=== PATIENT | male | born 1970 | race Two or more races ===

== ENCOUNTER 2025-02-23 09:26 | Day surgery (SDC) | payer MEDICAID ==
[2025-02-22 13:14] LABS: Hematocrit 49.4 % (41.0-53.0); Hemoglobin 16.8 g/dL (13.5-17.5); Mean Corpuscular Hemoglobin 32.3 pg (28.0-32.0); Mean Corpuscular Volume 95.0 fL (80.0-100.0); Nucleated Red Blood Cells % 0.0 %
[2025-02-22 13:24] LABS: Urine Protein, UAD 1+ (Negative)
[2025-02-22 13:26] LABS: INR 1.03 (0.9-1.15); Partial Thromboplastin Time 28.8 SEC (24.5-34.5); Prothrombin Time 10.9 sec (9.3-11.8)
[2025-02-22 15:10] LABS: Alanine Aminotransferase 25 U/L (7-40); Albumin 4.3 g/dL (3.2-4.8); Anion Gap 7 (5-15); BUN/Creatinine Ratio 18.3 (10.0-20.0); Bilirubin, Total 0.6 mg/dL (0.2-1.0); Blood Urea Nitrogen 19 mg/dL (9-23); Calcium 9.5 mg/dL (8.7-10.4); Carbon Dioxide 28 mmol/L (20-31); Chloride 106 mmol/L (98-107); Glucose 84 mg/dL (74-106); Potassium 4.1 mmol/L (3.5-5.1); Sodium 141 mmol/L (136-145); Total Protein 7.5 g/dL (5.7-8.2)
[2025-02-22 15:20] LABS: Alkaline Phosphatase 127 U/L (46-116)
[~2025-02-23] VITALS: Ht 177.8 cm; Wt 113.4 kg
[2025-02-23] MEDS: CIPROFLOXACIN 400MG/200ML 200 ML IV ONE (13:50)
[2025-02-23] MEDS ORDERED: MEPERIDINE HCL (25 MG/ML) 1ML VIAL ONE (13:52)
[2025-02-23] MEDS ORDERED: MIDAZOLAM HCL 2MG/2ML 2ml VIAL (1mg/ml) ONE (13:52)
[2025-02-23] MEDS ORDERED: fentaNYL CITRATE 100 MCG/2 ML VL ONE (13:52)
[2025-02-23] MEDS ORDERED: SUCCINYLCHOLINE CHLORIDE 20 MG/ML 10ML VIAL IV ONE (13:53)
[2025-02-23] MEDS ORDERED: hydrALAZINE HCL 20 MG/ML VL IV PRN (14:15)
[2025-02-23] MEDS ORDERED: MIDAZOLAM HCL 2MG/2ML 2ml VIAL (1mg/ml) IV PRN (14:15)
[2025-02-23] MEDS ORDERED: KETOROLAC TROMETH 30 MG/ML 1ML VIAL IV ONE (14:15)
[2025-02-23] MEDS ORDERED: PROPOFOL 10 MG/ML 20 ML IV ONE (14:26)
[2025-02-23] MEDS ORDERED: ONDANSETRON HCL 4 MG/2 ML VIAL ONE (14:27)
[2025-02-23] MEDS: IOHEXOL 300 MG/ML 100ML BOTTLE IJ ONE (14:27)
[2025-02-23 15:15] VITALS: PULSE 64; RESP 12; O2SAT 95
--- NOTE | 2025-02-23 15:23 | DVHNC2 ---
Procedure - OPERATIVE REPORT Pre-op. Diagnosis: Kidney Stone -Left- 1.7 cm, s/p ESWL Left ureteral stent Post-op. Diagnosis: Same as pre-op diagnosis Operation: Left ureteroscopy/pyeloscopy, laser lithotripsy with renal evacuation Cystoscopy with left ureteral stent removal Anesthesia: General Indications: Patient with large 1.7 cm residual left lower pole kidney stone following ESWL therapy. The indications, risks, complications, alternatives and benefits were discussed. All questions were encouraged and answered. Patient is aware of risks/complications including but not limited to infection, bleeding, persistent pain, possible ureteral injury/ureteral stricture requiring additional surgical management, urethral injury, urethral stricture and meatal stenosis. Details of Procedure: After obtaining the consent, patient was taken to OR suite and underwent general anesthesia. Preop antibiotic was given. Timeout was performed and deemed to be correct. With the patient positioned in the lithotomy, the area of the genitalia prepped and draped in usual sterile fashion. 22 F Cystoscope was used to access the urethra and bladder. The left ureteral stent was grasped and removed. A sensor tip guide wire was advanced through the scope into the left ureter all the way to the left collecting system under fluoroscopic control. I advanced 12x14 Fr 36 cm access sheet over the working wire all the way to the proximal ureter under fluoroscopy control, then the inner sheet and the working wire was removed. The Digital flexible ureteroscope (Calyxo CVAC) was advanced through the access sheet. The stones were visualized. Now using a 200 micron laser fiber the stone was blasted into small fragments and suctioned out while in dusting mode. Ureteroscope was then removed and guidewire removed, as I did not replace ureteral stent per patient request. Ureteral sheath was then removed. Patient was placed in supine position in the OR table. Anesthesia was reversed, patient was extubated and transferred awake and in stable conditions to recovery room. Specimens: renal stone fragments Complications: None Findings: Patient had radiolucent stones AJ JEAN MD Feb 23, 2025 15:23
--- NOTE | 2025-02-23 15:24 | DVHDS2 ---
New Physician D'charge PN Admitting Diagnosis Admitting Diagnosis Left renal stones Left ureteral stent Discharge Diagnosis Same Operations or Procedures Left ureteroscope epic laser lithotripsy with renal evacuation and stent removal Reason(s) For Hospitalization Surgery Treatment Plan Discharge Condition of Discharge Good Disposition Home Discharge Instructions Diet: Regular Activity: Light activity Activity comment: As tolerated Medications: Given Follow Up Care Follow Up/Referral: Follow up as needed Discharge Statement: "Patient was advised to return to the ER or call 911 if any headaches, dizziness, shortness of breath, chest pain, abdominal pain, bleeding, fevers, or worsening of medical condition. Patient was counseled about treatment plan, medications, possible side effects, patientverbalized understanding. All questions were answered to the best of my ability. This discharge took greater then 30 minutes in planning, reviewing documentation, counseling the patient, and discussing with other team members." AJ JEAN MD Feb 23, 2025 15:24
[2025-02-23] MEDS: ONDANSETRON HCL 4 MG/2 ML VIAL IV PRN (15:39)
[2025-02-23 15:50] VITALS: PULSE 66; RESP 14; O2SAT 99
[2025-02-23] MEDS: HYDROmorphone HCL 2 MG/ML VL/or syr IV PRN (16:14)
[2025-02-23] MEDS ORDERED: MORPHINE SULFATE INJ 2 MG/ml SYRG ONE (16:39)
[2025-02-23] MEDS: MORPHINE SULFATE 4 MG/ML SYR/VIAL IV PRN (16:41)
[2025-02-23] MEDS ORDERED: ACETAMINOPHEN IV 100 ML IV ONE (17:20)
[2025-02-23] MEDS: ACETAMINOPHEN IV 1000 MG/100ML (10MG/ML) IV ONE (17:25)
[2025-02-23 17:30] VITALS: BP 169/103; PULSE 68; RESP 17; O2SAT 96
--- NOTE | 2025-02-23 19:30 | DVH ---
XY KUB ABDOMEN SINGLE VIEW INDICATION: LEFT URETERAL LASER LITHOTRIPSY TECHNIQUE: Intraoperative fluoroscopic images were obtained DOSE: 41.29 mGy COMPARISON: None FINDINGS: Successful intraoperative fluoroscopic guidance. IMPRESSION: 1. Successful intraoperative fluoroscopic guidance and please follow up with surgical report.
--- NOTE | 2025-02-23 19:31 | DVH ---
XY C ARM FLUOROSCOPY UP TO 60MIN INDICATION: LEFT URETERAL LASER LITHOTRIPSY TECHNIQUE: Intraoperative fluoroscopic images were obtained DOSE: 41.29 mGy 67.4 seconds of fluoroscopic time COMPARISON: None FINDINGS: Successful intraoperative fluoroscopic guidance. IMPRESSION: 1. Successful intraoperative fluoroscopic guidance and please follow up with surgical report.
== END 2025-02-24 18:00 | disposition home or self-care (01) ==
LOC: SUR 09:26
PROVIDERS: ATTEND Urology
DX: N20.0 Calculus of kidney (principal); Z79.899 Other long term (current) drug therapy
CPT/HCPCS: 36415; 52353; 74018; 80053; 81001; 82360; 85025; 85610; 85730; 87086; 88300; J0330; J0744; J1100; J1171; J2175; J2250; J2270; J2405; J2704; J3010; Q9967; 76000; J0131